=== PATIENT | female | born 1985 | race Native Hawaiian/Other Pacific Islander ===

== ENCOUNTER 2016-09-05 15:45 | Outpatient (CLI) | payer OTHER ==
[2016-09-05 16:15] LABS: PLATELET COUNT 302 K/uL (152-353)
[2016-09-05 16:41] LABS: POTASSIUM 3.9 mmol/L (3.6-5.2); SODIUM 140 mmol/L (136-145)
== END 2016-09-05 17:00 | disposition home or self-care (01) ==
LOC: LABW 15:45
PROVIDERS: Psychiatry & Neurology Neurology with Special Qualifications in Child Neurology
DX: F70 Mild intellectual disabilities (principal); G40.219 Localization-related (focal) (partial) symptomatic epilepsy and epileptic syndromes with complex partial seizures, intractable, without status epilepticus; F32.89 Other specified depressive episodes
CPT/HCPCS: 36415; 80053; 80164; 85027

== ENCOUNTER 2016-11-30 14:21 | Outpatient (CLI) | payer OTHER ==
[2016-11-30 14:58] LABS: POTASSIUM 3.7 mmol/L (3.6-5.2); SODIUM 140 mmol/L (136-145)
[2016-11-30 15:07] LABS: PLATELET COUNT 290 K/uL (152-353)
== END 2016-11-30 20:01 | disposition home or self-care (01) ==
LOC: LABW 14:21
PROVIDERS: Psychiatry & Neurology Neurology with Special Qualifications in Child Neurology
DX: F70 Mild intellectual disabilities (principal); G40.219 Localization-related (focal) (partial) symptomatic epilepsy and epileptic syndromes with complex partial seizures, intractable, without status epilepticus; F32.89 Other specified depressive episodes
CPT/HCPCS: 36415; 80053; 80164; 85027

== ENCOUNTER 2019-03-10 12:26 | Outpatient (CLI) | payer OTHER | END 2019-03-10 19:16 | disposition home or self-care (01) | LOC: LABW 12:26 | DX: G40.219 Localization-related (focal) (partial) symptomatic epilepsy and epileptic syndromes with complex partial seizures, intractable, without status epilepticus (principal) | CPT/HCPCS: 36415; 80164 ==

== ENCOUNTER 2022-03-27 10:51 | Outpatient (CLI) | payer OTHER ==
[2022-03-27 11:16] LABS: PLATELET COUNT 336 K/uL (152-353)
[2022-03-27 11:24] LABS: POTASSIUM 3.9 mmol/L (3.6-5.2)
== END 2022-03-27 19:37 | disposition home or self-care (01) ==
LOC: LABW 10:51
PROVIDERS: ATTEND Nurse Practitioner
DX: F70 Mild intellectual disabilities (principal); G40.219 Localization-related (focal) (partial) symptomatic epilepsy and epileptic syndromes with complex partial seizures, intractable, without status epilepticus
CPT/HCPCS: 36415; 80053; 80164; 85027

== ENCOUNTER 2022-07-26 14:33 | Outpatient (CLI) | payer OTHER ==
[2022-07-26 14:51] LABS: PLATELET COUNT 311 K/uL (152-353)
[2022-07-26 15:07] LABS: POTASSIUM 4.9 mmol/L (3.6-5.2)
== END 2022-07-26 19:28 | disposition home or self-care (01) ==
LOC: LABW 14:33
PROVIDERS: ATTEND Nurse Practitioner
DX: Z79.899 Other long term (current) drug therapy (principal); F70 Mild intellectual disabilities; G40.219 Localization-related (focal) (partial) symptomatic epilepsy and epileptic syndromes with complex partial seizures, intractable, without status epilepticus
CPT/HCPCS: 36415; 80053; 80164; 85027